=== PATIENT | male | born 1990 | race Caucasian/White ===

== ENCOUNTER 2018-09-23 02:49 | Emergency (ER) | payer BC ==
[2018-09-23] MEDS ORDERED: CHILDREN'S ASPI81 M1 PO (03:17)
[2018-09-23 03:21] LABS: EOS # 0.2 (0.04-0.40); EOS % 4.2 % (0.0-4.0); HEMATOCRIT 47.5 % (42.0-52.0); HEMOGLOBIN 15.5 g/dL (13.5-18.0); LYMPH# 1.8 (1.50-4.00); MEAN CELL VOLUME 82 fl (78-100); MEAN CORPUSCULAR HEMOGLOBIN 27 pg (27-31); MEAN CORPUSCULAR HGB CONC 33 g/dL (33-37); MEAN PLATELET VOLUME 9.1 fl (7.4-10.4); MONO # 0.5 (0.20-0.80); NEU # 2.3 (1.40-6.50); PLATELET COUNT 211 K/mm3 (130-400); RED BLOOD COUNT 5.78 M/mm3 (4.20-5.60); WHITE BLOOD COUNT 4.8 K/mm3 (4.8-10.8)
[2018-09-23 03:36] LABS: ALBUMIN 4.6 g/dL (3.5-5.0); POTASSIUM 3.8 mmol/L (3.5-5.1)
[2018-09-23 03:38] LABS: CALCIUM 9.7 mg/dL (8.3-10.5)
[2018-09-23 03:41] LABS: TOTAL BILIRUBIN 0.8 mg/dL (0.2-1.2)
[2018-09-23 03:44] LABS: TROPONIN-I < 0.03 ng/mL (<0.030)
[2018-09-23 08:23] VITALS: BP 117/77
== END 2018-09-23 08:24 | disposition home or self-care (01) ==
LOC: ED 02:49
PROVIDERS: Family Medicine
DX: I48.0 Paroxysmal atrial fibrillation (principal); Z88.1 Allergy status to other antibiotic agents; Z79.82 Long term (current) use of aspirin

== ENCOUNTER → 2018-10-02 | Outpatient (CLI) | payer BC ==
[2018-09-23 08:23] VITALS: BP 117/77
[~2018-10-02] MED LIST: CHILDREN'S ASPI81 M1 PO
== END ==
LOC: LAB 12:37
DX: R34 Anuria and oliguria (principal); R33.9 Retention of urine, unspecified; R53.83 Other fatigue